=== PATIENT | female | born 1950 | race Caucasian/White ===

== ENCOUNTER → 2016-11-21 | Outpatient (CLI) | payer MEDICARE, BC ==
[2016-11-21 12:07] VITALS: BP 118/82; PULSE 69; RESP 20; TEMP 97; BMI 28.3
--- NOTE | 2016-12-08 18:18 | P.PN ---
Progress Note - Text DATE OF SERVICE: 11/21/2016 CHIEF COMPLAINT: Panniculitis. HISTORY OF PRESENT ILLNESS: Nayely Pierce is a 66-year-old female who has pertinent history of a sleeve gastrectomy performed over almost 2 years ago. At her height of 5 feet 6 inches, her highest weight was 270 pounds. Her ideal body weight is 154 pounds. Today she comes in weighing 175 pounds. She has maintained a 95-pound weight loss. Percent excess weight loss is 82%. She is only 21 pounds overweight. Body mass index is reduced from 43.7 down to 28.3. Total BMI point reduction is 15. Now she presents for further evaluation and management. She has been using nystatin powders for her symptoms as well over 2 years. PAST MEDICAL HISTORY: 1. Diabetes type 2. 2. Benign hypertension, now resolved. 3. Dyslipidemia, now resolved. 4. Depression. 5. Gastroesophageal reflux disease. 6. Obstructive sleep apnea. 7. Stroke. 8. Morbid obesity. PAST SURGICAL HISTORY: 1. Sleeve gastrectomy. 2. Hysterectomy. 3. Carpal tunnel release. 4. Right knee arthroscopy. 5. Cholecystectomy. MEDICATIONS: 1. Zoloft. 2. Primidone. 3. Ditropan. 4. Nystatin powder. 5. Multivitamin. 6. Lopid. 7. Vasotec. 8. Vitamin D. 9. Calcium. 10. Aspirin. ALLERGIES: 1. BACTRIM. 2. METFORMIN. SOCIAL HISTORY: Denies any alcohol or tobacco use. She is a remote tobacco user and she is with a at bedside. FAMILY HISTORY: Pertinent for diabetes, including dyslipidemia. REVIEW OF SYSTEMS: CONSTITUTIONAL: Highest weight of 270 pounds. Maintained weight loss of 95 pounds. Percent excess weight loss 82%. [place] body weight is 154 pounds. Body mass index reduced from 43.7 down to 28.3. Total BMI point reduction is 15.4. CARDIOVASCULAR: She is on hyperlipid medications. She has been restarted on low dose antihypertensive medications. HEENT: Denies any trouble with vision or hearing. ENDOCRINE: Diabetes type 2, now resolved. No reports of thyroid disorder. RESPIRATORY: No reports of cough or pneumonia. GI: Denies any change in bowel habits, diarrhea, constipation. MUSCULOSKELETAL: Moderate reduction of degenerative joint disease swelling. GENITOURINARY: History of hysterectomy. NEURO: Prior history of stroke without recurrent. HEMATOLOGIC: Denies abnormal bleeding or bruising. PHYSICAL EXAM: VITAL SIGNS: 97.0, 69, 20, 118/82; 5 feet 6 inches, 175 pounds. Body mass index of 28.3. ABDOMEN: Well-healed right upper quadrant incision with decreased sensation along the lateral aspect. Pannus extends over pubis by 5 cm, hyperemia consistent with panniculitis. Weight of pannus of over 6 pounds. GENERAL: Well-developed female in no acute distress. HEENT: No sclerae icterus. Extraocular movements grossly intact. Moist buccal mucosa. NECK: Supple without lymphadenopathy. CHEST: Unlabored respirations with equal bilateral excursions. CARDIOVASCULAR: Regular rate and rhythm. MUSCULOSKELETAL: No clubbing, cyanosis. NEURO: No focal or lateralizing signs. PSYCH: Appropriate affect. Alert and oriented to person, place and time. LABS: Pending. ASSESSMENT: 1. Morbid obesity due to excess calories, now resolved. 2. Body mass index reduced from 43.7 down to 28.3. 3. Status post sleeve gastrectomy. 4. Dietary surveillance and counseling. 5. Diabetes type 2, resolved. 6. Improvement of dyslipidemia. 7. Hypertension, improved. 8. History of stroke. 9. Panniculitis. 10. Stress eating. 11. Secondary hyperparathyroidism due to inadequate calcium intake. PLAN: 1. Recommend panniculectomy as she has demonstrated a maintained weight loss between 95 to 100 pounds. 2. In the interim in preparation of her procedure, I have recommended a 2-week high protein, low caloric diet to actually help increase her protein intake and optimum recovery as well as nutrition. 3. Also recommend a repeat bariatric metabolic panel. 4. Risks of panniculectomy include expected blood loss anemia was reviewed, which she demonstrated understanding. 5. Risk of flap failure, infection, as well as infarction from her cholecystectomy site was also reviewed. 6. She will wear an abdominal binder anywhere between 4 to 6 weeks postop. 7. Recommend medical including cardiac risk assessment.
== END | disposition home or self-care (01) ==
LOC: BARWHC3 10:44
PROVIDERS: ATTEND Surgery Plastic and Reconstructive Surgery
DX: Z48.815 Encounter for surgical aftercare following surgery on the digestive system (principal); Z98.84 Bariatric surgery status; Z68.28 Body mass index [BMI] 28.0-28.9, adult; M79.3 Panniculitis, unspecified; Z79.899 Other long term (current) drug therapy
CPT/HCPCS: 99211

== ENCOUNTER → 2016-12-18 | Outpatient (CLI) | payer MEDICARE, BC ==
[2016-12-18 15:40] VITALS: BP 132/65; PULSE 77; RESP 16; TEMP 98; BMI 27.3
[2016-12-18 16:44] LABS: CH 30.7; CHCM 34.5; HCT 38.9 % (34.0-46.0); HDW 3.13; HGB 12.8 gm/dL (11.4-16.0); MCH 29.5 pg (25.0-35.0); MCHC 32.9 g/dL (31.0-37.0); MCV 89.4 fL (80.0-100.0); Mean Platelet Volume 8.9; RBC 4.35 m/uL (3.80-5.40); RDW 13.5 % (11.5-15.5); WBC 6.1 k/uL (3.8-10.6)
[2016-12-18 17:02] LABS: INR 1.1 (<1.1); Prothrombin Time 10.9 sec (9.0-12.0)
[2016-12-18 17:14] LABS: ALT 23 U/L (9-52); AST 17 U/L (14-36); Alkaline Phosphatase 114 U/L (38-126); Anion Gap 14 mmol/L; Blood Urea Nitrogen 17 mg/dL (7-17); Calcium 10.6 mg/dL (8.4-10.2); Carbon Dioxide 25 mmol/L (22-30); Chloride 107 mmol/L (98-107); Cholesterol 191 mg/dL (<200); Glucose 106 mg/dL (74-99); HDL Cholesterol 62 mg/dL (40-60); Iron 86 ug/dL (37-170); Magnesium 1.7 mg/dL (1.6-2.3); Non-African American GFR(MDRD) >60 (>60 ml/min/1.73 sqM); Partial Thromboplastin Time 18.3 sec (22.0-30.0); Phosphorous 3.2 mg/dL (2.5-4.5); Potassium 4.4 mmol/L (3.5-5.1); Sodium 146 mmol/L (137-145); Total Bilirubin 0.6 mg/dL (0.2-1.3); Total Protein 7.4 g/dL (6.3-8.2); Triglycerides 123 mg/dL (<150)
[2016-12-18 17:25] LABS: % Iron Saturation 26.9 % (20-50); Prealbumin 19 mg/dL (18-36); Total Iron Binding Capacity 320 ug/dL (265-497)
[2016-12-18 18:07] LABS: Hemoglobin A1C 6.2 % (4.2-6.1)
[2016-12-18 18:21] LABS: Vitamin B12 702 pg/mL (239-931)
[2016-12-20 18:53] LABS: Selenium 147 mcg/L (63-160)
--- NOTE | 2016-12-20 22:28 | PN ---
DATE OF SERVICE: 12/18/2016 CHIEF COMPLAINT: Panniculitis. HISTORY OF PRESENT ILLNESS: Nayely Pierce is a 66-year-old female who is status post sleeve gastrectomy about 3 to 4 years ago. She reports her highest weight was 270 pounds. For her height of 5 feet 6 inches, her ideal body weight is 154 pounds. Today she comes in weighing 169 pounds. She has achieved 101-pound weight loss. Percent excess weight loss is 87%. Body mass index has been reduced from 43.7 to 27.3. Today she comes in fairly tearful, as she has decided against a panniculectomy. She is more concerned about her postoperative recovery, whereby from her previous panniculectomy she did have a stroke and had an almost near- experience. She is tearful with her at bedside. Now she presents for further evaluation and management. PAST MEDICAL HISTORY: 1. Diabetes type 2. 2. Benign hypertension, now resolved. 3. Dyslipidemia, now resolved. 4. Depression. 5. Gastroesophageal reflux disease. 6. Obstructive sleep apnea. 7. Stroke. 8. Morbid obesity. PAST SURGICAL HISTORY: 1. Sleeve gastrectomy. 2. Hysterectomy. 3. Carpal tunnel release. 4. Right knee arthroscopy. 5. Cholecystectomy. MEDICATIONS: 1. Zoloft. 2. Primidone. 3. Ditropan. 4. Nystatin powder. 5. Multivitamin. 6. Lopid. 7. Vasotec. 8. Vitamin D. 9. Calcium. 10. Aspirin. ALLERGIES: 1. BACTRIM. 2. METFORMIN. SOCIAL HISTORY: Denies any alcohol or tobacco use. She is a remote tobacco user and she is with a at bedside. FAMILY HISTORY: Pertinent for diabetes, including dyslipidemia. REVIEW OF SYSTEMS: CONSTITUTIONAL: Highest weight of 270 pounds. Present weight now down to 169 pounds. She has lost 6 pounds since her last visit a month ago. Percent excess weight loss is now up to 87%. Body mass index has been reduced from 43.7 to 27.3. CARDIOVASCULAR: She is on hyperlipid medications. She has been restarted on low dose antihypertensive medications. HEENT: Denies any trouble with vision or hearing. ENDOCRINE: Diabetes type 2, now resolved. No reports of thyroid disorder. RESPIRATORY: No reports of cough or pneumonia. GI: Denies any change in bowel habits, diarrhea, constipation. MUSCULOSKELETAL: Moderate reduction of degenerative joint disease swelling. GENITOURINARY: History of hysterectomy. NEURO: Prior history of stroke without recurrent. HEMATOLOGIC: Denies abnormal bleeding or bruising. PHYSICAL EXAM: VITAL SIGNS: 98.0, 77, 16, 132/65, 5 feet 6 inches, 169 pounds. Body mass index 27.3. ABDOMEN: Soft, nontender. PSYCHIATRIC: She is tearful. Affect is sad. GENERAL: Well-developed female in no acute distress. HEENT: No sclerae icterus. Extraocular movements grossly intact. Moist buccal mucosa. NECK: Supple without lymphadenopathy. CHEST: Unlabored respirations with equal bilateral excursions. CARDIOVASCULAR: Regular rate and rhythm. MUSCULOSKELETAL: No clubbing, cyanosis. NEURO: No focal or lateralizing signs. LABS: White count normal at 6.1. Hemoglobin normal at 12.8. INR normal at 1.1. PTT low at 18.3. Sodium elevated at 146. Glucose elevated at 106. Hemoglobin A1c elevated at 6.2. Previous hemoglobin A1c was elevated at 6.7. Calcium was elevated at 10.6. Previous calcium level was 10.1. LDL elevated at 104. HDL elevated at 62. Vitamin D is within normal limits. Trace elements copper and selenium still pending. Overall, her nutrition is fair. 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 As she has achieved a 100-pound weight loss, I have encouraged her at any time that she may pursue her panniculectomy with her history irritation from her pannus; however, in the interim, would recommend nystatin powder and conservative treatment. Separately the patient is due for colonoscopic screening. [facility]
== END | disposition home or self-care (01) ==
LOC: BARWHC3 13:52
PROVIDERS: ATTEND Surgery Plastic and Reconstructive Surgery
DX: Z48.815 Encounter for surgical aftercare following surgery on the digestive system (principal); M79.3 Panniculitis, unspecified; E66.01 Morbid (severe) obesity due to excess calories; Z68.27 Body mass index [BMI] 27.0-27.9, adult; E21.1 Secondary hyperparathyroidism, not elsewhere classified; E89.1 Postprocedural hypoinsulinemia; D50.8 Other iron deficiency anemias; E44.0 Moderate protein-calorie malnutrition; E55.9 Vitamin D deficiency, unspecified; K74.1 Hepatic sclerosis; N19 Unspecified kidney failure; K50.90 Crohn's disease, unspecified, without complications; Z98.84 Bariatric surgery status; Z79.899 Other long term (current) drug therapy; Z88.1 Allergy status to other antibiotic agents; Z88.8 Allergy status to other drugs, medicaments and biological substances; F17.200 Nicotine dependence, unspecified, uncomplicated; F32.9 Major depressive disorder, single episode, unspecified; E11.9 Type 2 diabetes mellitus without complications; Z86.73 Personal history of transient ischemic attack (TIA), and cerebral infarction without residual deficits
CPT/HCPCS: 84255; 84134; 84425; 80061; 80053; 82607; 82728; 83036; 82525; 82746; 83540; 83550; 83735; 84100; 84443; 84590; 84630; 85027; 85610; 85730; 82306; 83970; 36415; G0463; 99211

== ENCOUNTER 2017-01-15 07:24 | Day surgery (SDC) | payer MEDICARE, BC ==
[2017-01-09 15:26] VITALS: BMI 27.6
[~2017-01-15 07:24] MED LIST: LACTATED RINGERS 1,000 ML IV SCH
--- NOTE | 2017-01-15 07:39 | P.GSHP ---
History of Present Illness H&P Date: 01/15/17 CHIEF COMPLAINT: Colon screen HISTORY OF PRESENT ILLNESS: The patient is a 66-year-old female who presents for colon screen. Lower endoscopy was offered for further evaluation and management. PAST MEDICAL HISTORY: Please see list. PAST SURGICAL HISTORY: Please see list. MEDICATIONS: Please see list. ALLERGIES: Please see list. SOCIAL HISTORY: No illicit drug use FAMILY HISTORY: No reports of Crohn disease or ulcerative colitis. REVIEW OF ORGAN SYSTEMS: CONSTITUTIONAL: No reports of fevers or chills. PHYSICAL EXAM: VITAL SIGNS: Stable GENERAL: Well-developed pleasant in no acute distress. HEENT: No scleral icterus. Extraocular movements grossly intact. Moist buccal mucosa. NECK: Supple without lymphadenopathy. CHEST: Unlabored respirations. Equal bilateral excursions. CARDIOVASCULAR: Regular rate and rhythm. Distal 2+ pulses. ABDOMEN: Soft, nontender, nondistended. MUSCULOSKELETAL: No clubbing, cyanosis, or edema. ASSESSMENT: 1. Colon screen. PLAN: 1. Recommend proceeding with a lower endoscopy Past Medical History Past Medical History: CVA/TIA, Hypertension Additional Past Medical History / Comment(s): Back pain, arthritis, blood clot in the leg. CVA 2013 History of Any Multi-Drug Resistant Organisms: None Reported Date of last positivie culture/infection: unknown MDRO Source:: "belly and back" Past Surgical History: Appendectomy, Bariatric Surgery, Cholecystectomy, Hysterectomy, Orthopedic Surgery, Tonsillectomy Additional Past Surgical History / Comment(s): Cataracts both eyes, gastric sleeve 11/22/13, urinary freq, infections, kidney stones Past Anesthesia/Blood Transfusion Reactions: Postoperative Nausea & Vomiting ( PONV) Additional Past Anesthesia/Blood Transfusion Reaction / Comment(s): N/V from gas. Past Psychological History: Anxiety, Depression Smoking Status: Never smoker Past Alcohol Use History: Occasional Past Drug Use History: None Reported - Past Family History Brother(s) Family Medical History: Cancer Additional Family Medical History / Comment(s): Brother had bladder ca. Medications and Allergies Home Medications Medication Instructions Recorded Confirmed Type Aspirin 81 mg PO HS 05/17/14 01/09/17 History Gemfibrozil [Lopid] 600 mg PO AC-BID 05/17/14 01/15/17 History Nystatin [Nystop] 1 applic TOPICAL DIRECTED 05/17/14 01/09/17 History Oxybutynin Chloride [Ditropan] 5 mg PO DAILY 05/17/14 01/15/17 History Primidone [Mysoline] 50 mg PO BID 05/17/14 01/15/17 History Sertraline [Zoloft] 50 mg PO BID 05/17/14 01/15/17 History Multivitamins, Thera [Multivitamin] 1 each PO DAILY 08/10/14 01/09/17 History Cholecalciferol [Vitamin D3] 2,000 unit PO DAILY 02/07/16 01/09/17 History Enalapril [Vasotec] 5 mg PO DAILY 02/07/16 01/15/17 History Calcium Carbonate [Calcium] 1,800 mg PO DAILY 03/13/16 01/09/17 History Allergies Allergy/AdvReac Type Severity Reaction Status Date / Time sulfamethoxazole Allergy Rash/Hives Verified 01/15/17 07:31 [From Bactrim] trimethoprim [From Bactrim] Allergy Rash/Hives Verified 01/15/17 07:31 metformin AdvReac Diarrhea Verified 01/15/17 07:31
[2017-01-15 07:46] VITALS: RESP 16; TEMP 97.3
[2017-01-15] MEDS ORDERED: LIDOCAINE 1% 20 ML VIAL (10MG/ML) FOR IV START INTRADERMA ONE (07:48)
[2017-01-15 07:53] LABS: Glucose,Whole Blood 165 mg/dL (75-99)
[2017-01-15] MEDS ORDERED: PROPOFOL 10 MG/ML 20 ML VIAL IV ONE (08:03)
[2017-01-15] MEDS ORDERED: LIDOCAINE 1% INJ 10MG/ML (20 ML MDV) ONE (08:03)
--- NOTE | 2017-01-15 08:31 | P.PCN ---
Date of Procedure: 01/15/17 Description of Procedure: PREOPERATIVE DIAGNOSIS: Colonoscopy screening. Previous history of colon polyps. POSTOPERATIVE DIAGNOSIS: Colonoscopy screening. Previous history of colon polyps. Colon polyps, sigmoid colon. OPERATION: Colonoscopy to the ileocecal valve. Colonoscopy with cold forceps biopsies at 15 and 30 cm from the anal verge. SURGEON: Vandana Morgan MD. ANESTHESIA: MAC. INDICATIONS: The patient is a 66-year-old female who presents for colonoscopy screening. Her last colonoscopy was over 5 years ago. Benefits and risks were described and informed consent was obtained. DESCRIPTION OF PROCEDURE: The patient had undergone Gatorade, MiraLAX and Dulcolax prep. She had been brought into the operating room and laid in the left lateral decubitus position. After adequate intravenous sedation, the rectum was examined with 2% lidocaine jelly. No external hemorrhoids were encountered. The rectal tone was within normal limits. No lesions were palpated in the rectal vault. An Olympus colonoscope was advanced until the ileocecal valve were clearly viewed. Abdominal wall pressure was required to advance the scope. The prep was excellent with clear visualization of the mucosal folds. The scope was removed with visualization of each mucosal fold. No scattered diverticulosis was encountered. Tubulovillous 3 mm polyps were removed using cold biopsy forceps at 15 and 30 cm from the anal verge. No evidence of focal colitis was found. Retroflexion of the scope demonstrated grade 1 internal hemorrhoids without active bleeding or inflammation. The colon was desufflated. The patient had tolerated the procedure well. Withdrawal time was over 6 minutes. FINDINGS: Internal hemorrhoids, grade 1 No external prolapsed hemorrhoids. No arteriovenous malformations. Tubulovillous polyp at sigmoid colon. No diffuse diverticulosis. No focal colitis. RECOMMENDATIONS: Lower endoscopy in 5 years, 2021. Plan - Discharge Summary Discharge Medication List Aspirin 81 mg PO HS 05/17/14 [History] Gemfibrozil [Lopid] 600 mg PO AC-BID 05/17/14 [History] Nystatin [Nystop] 1 applic TOPICAL DIRECTED 05/17/14 [History] Oxybutynin Chloride [Ditropan] 5 mg PO DAILY 05/17/14 [History] Primidone [Mysoline] 50 mg PO BID 05/17/14 [History] Sertraline [Zoloft] 50 mg PO BID 05/17/14 [History] Multivitamins, Thera [Multivitamin] 1 each PO DAILY 08/10/14 [History] Cholecalciferol [Vitamin D3] 2,000 unit PO DAILY 02/07/16 [History] Enalapril [Vasotec] 5 mg PO DAILY 02/07/16 [History] Calcium Carbonate [Calcium] 1,800 mg PO DAILY 03/13/16 [History] Follow up Appointment(s)/Referral(s): Vandana Morgan MD [STAFF PHYSICIAN] - As Needed Activity/Diet/Wound Care/Special Instructions: May start aspirin tomorrow. Repeat colonoscopy in 2021, 5 years. Discharge Disposition: HOME SELF-CARE
[2017-01-15 08:51] VITALS: PULSE 75
[2017-01-15 08:56] VITALS: BP 114/75
== END 2017-01-15 09:09 | disposition home or self-care (01) ==
LOC: ORWHC2ENDO 07:24
PROVIDERS: ATTEND Surgery Plastic and Reconstructive Surgery
DX: Z12.11 Encounter for screening for malignant neoplasm of colon (principal); D12.5 Benign neoplasm of sigmoid colon; K64.0 First degree hemorrhoids; I10 Essential (primary) hypertension; E78.5 Hyperlipidemia, unspecified; F32.9 Major depressive disorder, single episode, unspecified; M19.90 Unspecified osteoarthritis, unspecified site; Z86.010 Personal history of colon polyps; Z88.2 Allergy status to sulfonamides; Z88.8 Allergy status to other drugs, medicaments and biological substances; Z79.82 Long term (current) use of aspirin; Z79.899 Other long term (current) drug therapy; Z86.73 Personal history of transient ischemic attack (TIA), and cerebral infarction without residual deficits
CPT/HCPCS: 45380; 88305

== ENCOUNTER → 2017-03-06 | Outpatient (CLI) | payer MEDICARE, BC ==
--- NOTE | 2017-03-07 07:25 | XR ---
EXAMINATION TYPE: XR knee complete LT DATE OF EXAM: 03/06/2017 9:26 AM CLINICAL HISTORY: Chronic increasing left knee pain. TECHNIQUE: Three views of the left knee are obtained. COMPARISON: None. FINDINGS: There is no acute fracture/dislocation evident in left knee. There is mild to moderate tri compartment joint space loss. There is mild to moderate tricompartment joint space spurring. [place] o sseous structures are somewhat demineralized. The overlying soft tissue appears unremarkable. IMPRESSION: There is demineralization with mild to moderate tricompartment degenerative changes.
== END | disposition home or self-care (01) ==
LOC: RADXRYALE 09:12
PROVIDERS: ATTEND Internal Medicine
DX: M81.0 Age-related osteoporosis without current pathological fracture (principal); M25.862 Other specified joint disorders, left knee; M25.562 Pain in left knee

== ENCOUNTER → 2017-12-29 | Outpatient (CLI) | payer MEDICARE ==
[2017-12-29 10:45] LABS: HCT 42.9 % (34.0-46.0); MCH 29.3 pg (25.0-35.0); MCHC 32.6 g/dL (31.0-37.0); MCV 89.8 fL (80.0-100.0); Platelet Count 196 k/uL (150-450); RBC 4.78 m/uL (3.80-5.40); RDW 12.6 % (11.5-15.5); WBC 6.3 k/uL (3.8-10.6)
[2017-12-29 10:46] LABS: Appearance,Urine Clear (Clear); Bilirubin,Urine Negative (Negative); Blood,Urine Negative (Negative); Color,Urine Yellow; Glucose,Urine (UA) Trace (Negative); Ketones,Urine Negative (Negative); Leukocyte Esterase,Urine Negative (Negative); Nitrite,Urine Negative (Negative); PH, Urine 5.5 (5.0-8.0); Protein,Urine Trace (Negative); Specific Gravity,Urine 1.013 (1.001-1.035); Urobilinogen,Urine <2.0 mg/dL (<2.0)
[2017-12-29 10:49] LABS: Partial Thromboplastin Time 23.9 sec (22.0-30.0)
[2017-12-29 10:55] LABS: ALT 16 U/L (9-52); AST 13 U/L (14-36); Albumin 4.3 g/dL (3.5-5.0); Alkaline Phosphatase 129 U/L (38-126); Anion Gap 12 mmol/L; Blood Urea Nitrogen 24 mg/dL (7-17); Calcium 10.6 mg/dL (8.4-10.2); Carbon Dioxide 30 mmol/L (22-30); Chloride 102 mmol/L (98-107); Glucose 174 mg/dL (74-99); Sodium 144 mmol/L (137-145); Total Bilirubin 0.6 mg/dL (0.2-1.3); Total Protein 7.1 g/dL (6.3-8.2)
== END | disposition home or self-care (01) ==
LOC: LABPAT 10:07
PROVIDERS: ATTEND Orthopaedic Surgery
DX: Z01.818 Encounter for other preprocedural examination (principal); Z01.812 Encounter for preprocedural laboratory examination; M17.12 Unilateral primary osteoarthritis, left knee
CPT/HCPCS: 36415; 80053; 81003; 85027; 85610; 85730; 87070

== ENCOUNTER → 2018-01-26 | Outpatient (CLI) | payer MEDICARE ==
--- NOTE | 2018-01-26 15:38 | US ---
EXAMINATION TYPE: US venous doppler duplex LE LT DATE OF EXAM: 01/26/2018 3:21 PM COMPARISON: NONE CLINICAL HISTORY: M25.562 PAIN LT KNEE,E10.9 TYPE I DM,M17.12 OSTEOARTHRITIS. post left knee replacem ent 3 weeks ago; prior rt DVT in 30's per patient. SIDE PERFORMED: Left TECHNIQUE: The lower extremity deep venous system is examined utilizing real time linear array sonog laura with graded compression, doppler sonography and color-flow sonography. VESSELS IMAGED: Common Femoral Vein Deep Femoral Vein Greater Saphenous Vein * Femoral Vein Popliteal Vein Small Saphenous Vein * Proximal Calf Veins (* superficial vessels) Grayscale, color doppler, spectral doppler imaging performed of the deep veins of the lower extremiti es. There is normal flow, compressibility, vascular waveforms. Left Leg: Negative for DVT. Fluid collection is noted medial to left knee = 7.4 x 3.3 x 1.1cm and an other fluid collection is noted lateral to left knee = 3.7 x 3.7 x 0.9cm. Tech findings called to Nicky ramos at Dr. Kent's [facility] at exam's end. IMPRESSION: 1. No sonographic evidence of deep venous thrombosis within the left lower extremity. 2. Elongated fluid collections medial and lateral to the left knee may represent postoperative seroma s, evolving hematomas, or elongated edema.
== END | disposition home or self-care (01) ==
LOC: RADUSWWP 14:45
PROVIDERS: ATTEND Orthopaedic Surgery
DX: M25.562 Pain in left knee (principal); E10.9 Type 1 diabetes mellitus without complications; Z96.652 Presence of left artificial knee joint

== ENCOUNTER → 2019-06-30 | Outpatient (CLI) | payer MEDICARE ==
--- NOTE | 2019-06-30 14:58 | P.PN ---
Subjective Progress Note Date: 06/30/19 DATE OF SERVICE: 06/30/2019 CHIEF COMPLAINT: Morbid obesity HISTORY OF PRESENT ILLNESS: Nayely Pierce is a 68-year-old female who is status post sleeve gastrectomy, 2014. She is 4 years out. She comes in with depression over the of her brother and ex-. She was last seen over 2 years when she was 169 pounds. Today she comes in 211 pounds. She has gained 40+ pounds. She reports having left knee surgery and now needs a revision of her left knee. She is unable to walk and be as active as she was before. She denies any back pain. She has a new torn ligament. No abdominal pain at this time. No dysphagia. She is now back on her diabetic and hypertensive medications. At her height of 5 feet 6 inches, her highest weight was 270 pounds. Her ideal body weight is 154 pounds. Today she comes in weighing 211 pounds from 169 pounds, 2.5 years ago since her last visit. She has gained 42 pounds in 2.5 years. She has maintained a 59-pound weight loss. Percent excess weight loss is 51%. PAST MEDICAL HISTORY: 1. Diabetes type 2 2. Benign hypertension. 3. Dyslipidemia 4. Depression. 5. Gastroesophageal reflux disease. 6. Obstructive sleep apnea. 7. Stroke. 8. Morbid obesity. 9. Seizure PAST SURGICAL HISTORY: 1. Sleeve gastrectomy. 2. Hysterectomy. 3. Carpal tunnel release. 4. Right knee arthroscopy. 5. Cholecystectomy. MEDICATIONS: Home Medications Medication Instructions Recorded Confirmed Aspirin 81 mg PO HS 05/17/14 07/28/19 Gemfibrozil [Lopid] 600 mg PO AC-BID 05/17/14 07/28/19 Oxybutynin Chloride [Ditropan] 5 mg PO BID 05/17/14 07/28/19 Primidone [Mysoline] 50 mg PO HS 05/17/14 07/28/19 Multivitamins, Thera [Multivitamin 1 tab PO DAILY 08/10/14 07/28/19 (formulary)] Cholecalciferol [Vitamin D3 (25 2,000 unit PO DAILY 02/07/16 07/28/19 Mcg = 1000 Iu)] Calcium Carbonate [Calcium] 600 mg PO DAILY 03/13/16 07/28/19 DULoxetine HCL [Cymbalta] 60 mg PO DAILY 12/30/17 07/28/19 Primidone [Mysoline] 100 mg PO DAILY 12/30/17 07/28/19 Pioglitazone [Actos] 45 mg PO DAILY 06/30/19 07/28/19 Previous Rx's Medication Instructions Recorded Metoprolol Tartrate [Lopressor] 12.5 mg PO DAILY #0 01/06/18 ALLERGIES: 1. BACTRIM. 2. METFORMIN. Allergies Allergy/AdvReac Type Severity Reaction Status Date / Time sulfamethoxazole Allergy Rash/Hives Verified 06/30/19 14:16 [From Bactrim] trimethoprim [From Bactrim] Allergy Rash/Hives Verified 06/30/19 14:16 metformin AdvReac Diarrhea Verified 06/30/19 14:16 SOCIAL HISTORY: Denies any alcohol or tobacco use. She is a remote tobacco user and she is with a at bedside. FAMILY HISTORY: Pertinent for diabetes, including dyslipidemia. REVIEW OF SYSTEMS: CONSTITUTIONAL: Highest weight of 270 pounds. [place] body weight is 154 pounds. Body mass index reduced from 43.7. CARDIOVASCULAR: She is on antihyperlipid medications. She has been restarted on low dose antihypertensive medications. HEENT: Denies any trouble with vision or hearing. No difficulty swallowing. ENDOCRINE: Diabetes type 2,recurrent. No reports of thyroid disorder. RESPIRATORY: No reports of cough or pneumonia. GI: Denies any change in bowel habits, diarrhea, constipation. MUSCULOSKELETAL: Moderate reduction of degenerative joint disease swelling. Has osteoarthritis of the knees. GENITOURINARY: History of hysterectomy. Denies any blood in urine or increased urinary frequency. NEURO: Prior history of stroke without recurrent. Has seizure disorder. HEMATOLOGIC: Denies abnormal bleeding or bruising. SKIN: No current skin cancer. No rash. PSYCHIATRIC: Has depression. No suicidal thoughts. HEME/LYMPHATIC: Denies any lumps and bumps around the neck. No recent deep venous thrombosis. ALLERGY/IMMUNOLOGY: No immunoglobulin therapy. No immune deficiencies. BREAST: Denies current breast lumps, pain or nipple discharge. PHYSICAL EXAM: VITAL SIGNS: 5 feet 6 inches. Body mass index of 34.1. Vital Signs Temp 98.2 F 06/30/19 14:13 Pulse 70 06/30/19 14:13 Resp 16 06/30/19 14:13 BP 133/86 06/30/19 14:13 Pulse Ox 96 06/30/19 14:13 CONSTITUTIONAL: Well developed and in no acute distress. EYES: Conjuctivae without sclera icterus. Pupils are equally round and reactive to light. Extraocular movements grossly intact. HEAD, EARS, NOSE, THROAT: Moist buccal mucosa. Head is atraumatic, normocephalic. Hears conversational speech. No nasal drainage. NECK: Supple. No JV distention. No thyroidomegaly. RESPIRATORY: Non-labored respirations and equal bilateral excursions. No gross wheezes. CARDIOVASCULAR: Regular rate and rhythm. Palpable 2+ radial pulses. ABDOMEN: Soft. Non-tender. Nondistended. No incisional hernia at bariatric sites. LYMPH: No neck lymphadenopathy. No axillary lymphadenopathy. MUSCULOSKELETAL: Nail and fingers with good capillary refill. SKIN: Warm and well perfused with good skin turgor. NEUROLOGIC: Cranial nerves I through XII grossly intact. Sensation upper and extremities intact. No focal or lateralizing signs. PSYCH: Appropriate affect. Alert and oriented to person, place and time. Displays appropriate insight. ASSESSMENT: 1. Morbid obesity due to excess calories 2. Body mass index reduced from 43.7 down to 34.1 3. Status post sleeve gastrectomy. 4. Dietary surveillance and counseling. 5. Diabetes type 2 6. Improvement of dyslipidemia. 7. Hypertension, improved. 8. History of stroke. 9. Panniculitis. 10. Stress eating. 11. Secondary hyperparathyroidism due to inadequate calcium intake. 12. Osteoarthritis left knee 13. Weight regain following bariatric procedure 14. Torn ligament of left knee PLAN: 1. She has troubles with her left knee. She was told to resume therapy for her left knee. 2. Recommend bariatric labs advised as she reports weight gain 3. Caution of NSAIDs use with future procedures 4. Recommend food diary journal Objective - Vital Signs Vital signs: Vital Signs Temp 98.2 F 06/30/19 14:13 Pulse 70 06/30/19 14:13 Resp 16 06/30/19 14:13 BP 133/86 06/30/19 14:13 Pulse Ox 96 06/30/19 14:13 Intake & Output 06/29/19 06/30/19 06/30/19 18:59 06:59 18:59 Weight 95.799 kg
== END ==
CPT/HCPCS: 99211

== ENCOUNTER → 2019-06-30 | Outpatient (CLI) | payer MEDICARE ==
[2019-06-30 15:51] LABS: HCT 37.6 % (34.0-46.0); HGB 12.3 gm/dL (11.4-16.0); MCH 30.7 pg (25.0-35.0); MCHC 32.7 g/dL (31.0-37.0); Mean Platelet Volume 8.2; Platelet Count 189 k/uL (150-450); RDW 14.7 % (11.5-15.5)
[2019-06-30 16:05] LABS: INR 0.9 (<1.2)
[2019-06-30 16:06] LABS: Partial Thromboplastin Time 26.3 sec (22.0-30.0)
[2019-07-01 00:35] LABS: Albumin 4.4 g/dL (3.80-4.90); Albumin/Globulin Ratio 2.1 (1.60-3.17); Anion Gap 10.7 mmol/L (4.00-12.00); BUN/Creat Ratio 26.25 Ratio (12.00-20.00); Calcium 9.9 mg/dL (8.7-10.3); Carbon Dioxide 26.3 mmol/L (21.6-31.8); Globulin 2.1 g/dL (1.6-3.3); Magnesium 1.6 mg/dL (1.5-2.4); Non-African American GFR(CKD) 76.8 (60.0-200.0); Phosphorus 3.8 mg/dL (2.4-5.1); Potassium 3.9 mmol/L (3.5-5.5); Total Bilirubin 0.5 mg/dL (0.3-1.2); Total Protein 6.5 g/dL (6.2-8.2)
[2019-07-01 00:42] LABS: Iron Saturation 23.96 (12.00-45.00); Iron(FE) 98 ug/dL (50-170); Total Iron Binding Capacity 409 ug/dL (228-460)
[2019-07-01 00:50] LABS: Vitamin D 25 Hydroxy 44.3 ng/mL (30.0-100.0)
[2019-07-01 00:52] LABS: Ferritin 40.7 ng/mL (10.0-291.0)
[2019-07-01 01:16] LABS: Folate, Serum >24.0 ng/mL
[2019-07-01 02:04] LABS: Hemoglobin A1C 6.4 % (4.0-6.0)
[2019-07-01 14:42] LABS: Zinc, Serum 81 ug/dL (60-130)
[2019-07-01 15:12] LABS: Vitamin A 51 ug/dL (38-106)
[2019-07-06 17:06] LABS: Selenium 126 mcg/L (63-160)
[2019-07-12 18:26] LABS: Vit B1(Thiamine) 63 ug/L (38-122)
== END | disposition home or self-care (01) ==
LOC: LABWHC1 15:23
PROVIDERS: ATTEND Surgery Plastic and Reconstructive Surgery
DX: E66.01 Morbid (severe) obesity due to excess calories (principal); E21.1 Secondary hyperparathyroidism, not elsewhere classified; E89.1 Postprocedural hypoinsulinemia; D50.9 Iron deficiency anemia, unspecified; K90.9 Intestinal malabsorption, unspecified; E55.9 Vitamin D deficiency, unspecified; K74.1 Hepatic sclerosis; N19 Unspecified kidney failure; K50.90 Crohn's disease, unspecified, without complications
CPT/HCPCS: 36415; 80053; 82306; 82525; 82607; 82728; 82746; 83036; 83540; 83550; 83735; 83970; 84100; 84134; 84255; 84425; 84443; 84590; 84630; 85027; 85610; 85730; 99211

== ENCOUNTER → 2019-07-28 | Outpatient (CLI) | payer MEDICARE ==
[2019-07-28 15:19] VITALS: BP 146/83; PULSE 66; RESP 16; TEMP 97.6; BMI 34.0
--- NOTE | 2019-07-29 15:42 | P.PN ---
Subjective Progress Note Date: 07/28/19 DATE OF SERVICE: 07/28/2019 CHIEF COMPLAINT: Morbid obesity HISTORY OF PRESENT ILLNESS: Nayely Pierce is a 68-year-old female who is status post sleeve gastrectomy, 2014. She is 4 years out. She returns with unchanged weight. She has less pain of the left knee. She comes in with food diary journal. No reports of abdominal pain. She is eager for weight loss. At her height of 5 feet 6 inches, her highest weight was 270 pounds. Her ideal body weight is 154 pounds. Today she comes in weighing 211 pounds unchanged from 1 month ago. She has maintained a 59-pound weight loss. Percent excess weight loss is 51%. PHYSICAL EXAM: VITAL SIGNS: 5 feet 6 inches. Weight 211 pounds. Body mass index of 34.1. Vital Signs Temp 97.6 F 07/28/19 15:17 Pulse 66 07/28/19 15:17 Resp 16 07/28/19 15:17 BP 146/83 07/28/19 15:17 Pulse Ox Intake & Output 07/28/19 07/29/19 07/29/19 18:59 06:59 18:59 Weight 95.708 kg CONSTITUTIONAL: Well developed and in no acute distress. EYES: Conjuctivae without sclera icterus. Pupils are equally round and reactive to light. Extraocular movements grossly intact. HEAD, EARS, NOSE, THROAT: Moist buccal mucosa. Head is atraumatic, normocephalic. Hears conversational speech. No nasal drainage. NECK: Supple. No JV distention. No thyroidomegaly. RESPIRATORY: Non-labored respirations and equal bilateral excursions. No gross wheezes. CARDIOVASCULAR: Regular rate and rhythm. Palpable 2+ radial pulses. ABDOMEN: Soft. Non-tender. Nondistended. No incisional hernia at bariatric sites. LYMPH: No neck lymphadenopathy. No axillary lymphadenopathy. MUSCULOSKELETAL: Nail and fingers with good capillary refill. SKIN: Warm and well perfused with good skin turgor. NEUROLOGIC: Cranial nerves I through XII grossly intact. Sensation upper and extremities intact. No focal or lateralizing signs. PSYCH: Appropriate affect. Alert and oriented to person, place and time. Displays appropriate insight. LABS: Hgb A1c of 6.4%. PTH elevated 72.7 ASSESSMENT: 1. Morbid obesity due to excess calories 2. Body mass index reduced from 43.7 down to 34.1 3. Status post sleeve gastrectomy. 4. Dietary surveillance and counseling. 5. Diabetes type 2 6. Improvement of dyslipidemia. 7. Hypertension, improved. 8. History of stroke. 9. Panniculitis. 10. Stress eating. 11. Secondary hyperparathyroidism due to inadequate calcium intake. 12. Osteoarthritis left knee 13. Weight regain following bariatric procedure 14. Torn ligament of left knee PLAN: 1. Continue with food journal Objective - Vital Signs Vital signs: Vital Signs Temp 97.6 F 07/28/19 15:17 Pulse 66 07/28/19 15:17 Resp 16 07/28/19 15:17 BP 146/83 07/28/19 15:17 Pulse Ox Intake & Output 07/27/19 07/28/19 07/28/19 18:59 06:59 18:59 Weight 95.708 kg
== END | disposition home or self-care (01) ==
LOC: BARWHC3 13:25
PROVIDERS: ATTEND Surgery Plastic and Reconstructive Surgery
DX: Z48.815 Encounter for surgical aftercare following surgery on the digestive system (principal); E66.01 Morbid (severe) obesity due to excess calories; E11.9 Type 2 diabetes mellitus without complications; E78.5 Hyperlipidemia, unspecified; I10 Essential (primary) hypertension; M79.3 Panniculitis, unspecified; N25.81 Secondary hyperparathyroidism of renal origin; F50.89 Other specified eating disorder; M17.12 Unilateral primary osteoarthritis, left knee; S83.92XA Sprain of unspecified site of left knee, initial encounter; Z71.3 Dietary counseling and surveillance; Z68.34 Body mass index [BMI] 34.0-34.9, adult; Z86.73 Personal history of transient ischemic attack (TIA), and cerebral infarction without residual deficits; Z98.84 Bariatric surgery status
CPT/HCPCS: 99211

== ENCOUNTER → 2020-08-30 | Outpatient (CLI) | payer MEDICARE ==
--- NOTE | 2020-08-30 17:02 | XR ---
EXAMINATION TYPE: XR chest 2V DATE OF EXAM: 08/30/2020 CLINICAL HISTORY: [id number] SOB. TECHNIQUE: Frontal and lateral view of the chest. COMPARISON: 01/03/2014 chest radiograph FINDINGS: The cardiomediastinal silhouette is within normal limits for size. Pulmonary vasculature i s normal. There is no focal air space opacity, pleural effusion, or pneumothorax seen. Degenerative c hanges of the spine.. IMPRESSION: No acute cardiopulmonary process.
== END | disposition home or self-care (01) ==
LOC: RADXRYALE 11:17
PROVIDERS: ATTEND Internal Medicine
DX: R06.02 Shortness of breath (principal)
CPT/HCPCS: 71046

== ENCOUNTER → 2023-10-30 | Outpatient (CLI) | payer MEDICARE ==
--- NOTE | 2023-10-30 12:27 | CA ---
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 18 - 58 / 22 - 52 cm??? LA Volume Index 31.7 cm???/m??? 16 - 28 cm???/m??? M-MODE Aortic Root Diameter MM 3.2 cm LA Systolic Diameter MM 4.1 cm LA Ao Ratio MM 1.3 AV Cusp Separation MM 1.8 cm DOPPLER AV Peak Velocity 138.3 cm/s AV Peak Gradient 7.6 mmHg AV Mean Velocity 102.3 cm/s AV Mean Gradient 4.5 mmHg AV Velocity Time Integral 24.9 cm AI Peak Velocity 415.9 cm/s AI Peak Gradient 69.2 mmHg AI Pressure Half Time 782.2 ms LVOT Peak Velocity 100.3 cm/s LVOT Peak Gradient 4.0 mmHg LVOT Velocity Time Integral 17.8 cm MV Area PHT 3.1 cm??? Mitral E Point Velocity 53.1 cm/s Mitral A Point Velocity 123.4 cm/s Mitral E to A Ratio 0.4 MV Deceleration Time 248.7 ms MV E' Velocity 4.0 cm/s Mitral E to MV E' Ratio 13.4 TR Peak Velocity 238.7 cm/s TR Peak Gradient 22.8 mmHg Right Ventricular Systolic Press 27.8 mmHg FINDINGS Left Ventricle Severely increased left ventricular wall thickness. Left ventricular cavity size normal. Normal left ventricular systolic function with no obvious regional wall motion abnormalities. Left ventricular ejection fraction is estimated at 55-60 %. Right Ventricle Normal right ventricular size and function. Right ventricular systolic pressure within normal limits. Right Atrium Normal right atrial size. Left Atrium Mildly increased left atrial volume. Mildly increased left atrial area. Interatrial septal aneurysm. Mitral Valve Structurally normal mitral valve. Mitral valve thickened. Mild mitral annular calcification. Mild mitral regurgitation. Aortic Valve Trileaflet aortic valve. No aortic stenosis. Mild aortic regurgitation. Tricuspid Valve Structurally normal tricuspid valve. Mild tricuspid regurgitation. Pulmonic Valve Structurally normal pulmonic valve. Trace to mild pulmonic regurgitation. Pericardium No pericardial effusion. Aorta Normal size aortic root and proximal ascending aorta. CONCLUSIONS 1. Normal left ventricle size and systolic function 2. Mild mitral, aortic and tricuspid regurgitation Previewed by: Dr. Cristiano Rand MD (Electronically Signed) Final Date: 30 October 2023 12:26
== END | disposition home or self-care (01) ==
LOC: RADECHMAIN 10:17
PROVIDERS: ATTEND Internal Medicine Cardiovascular Disease
DX: I08.3 Combined rheumatic disorders of mitral, aortic and tricuspid valves (principal); I44.4 Left anterior fascicular block; I49.1 Atrial premature depolarization; Z86.73 Personal history of transient ischemic attack (TIA), and cerebral infarction without residual deficits
CPT/HCPCS: 93306